=== PATIENT | male | born 1960 | race Caucasian/White ===

== ENCOUNTER 2021-06-29 03:11 | Outpatient (CLI) | payer OTHER, SELFPAY ==
[2021-06-29 09:27] LABS: ALT 32 U/L (16-63); AST 18 U/L (15-37); Albumin 4.1 g/dL (3.4-5.0); Alkaline Phosphatase 67 U/L (46-116); Anion Gap 5.1 mmol/L (3-11); BUN 21 mg/dL (7-18); Bilirubin, Total 0.6 mg/dL (0.2-1.0); CO2 32.9 mmol/L (21.0-32.0); CREATININE 1.2 mg/dL (0.70-1.30); Calcium 9.1 mg/dL (8.5-10.1); Calculated LDL 135 mg/dL (<100); Chloride 100 mmol/L (98-107); Cholesterol 194 mg/dL (<200); Glucose 106 mg/dL (74-106); HDL Cholesterol 37 mg/dL (40-60); Potassium 4.1 mmol/L (3.5-5.1); Sodium 138 mmol/L (136-145); Total Protein 7.6 g/dL (6.4-8.2); Triglyceride 110 mg/dL (<150)
== END 2021-06-29 03:12 | disposition home or self-care (01) ==
LOC: LBO 03:11
PROVIDERS: PCP Family Medicine; Visit Provider Family Medicine
DX: I10 Essential (primary) hypertension (principal)
CPT/HCPCS: 36415; 80053; 80061

== ENCOUNTER 2021-09-25 01:52 | Outpatient (CLI) | payer OTHER, SELFPAY ==
[2021-09-25 12:21] LABS: Source Nasal/Nares
[2021-09-25 15:39] LABS: COVID-19 PCR Negative (Negative)
== END 2021-09-25 01:53 | disposition home or self-care (01) ==
LOC: LBO 01:53
PROVIDERS: PCP Family Medicine; Visit Provider Surgery
DX: Z20.822 Contact with and (suspected) exposure to COVID-19 (principal)
CPT/HCPCS: 87635

== ENCOUNTER 2021-09-28 09:08 | Day surgery (SDC) | payer OTHER, SELFPAY ==
--- NOTE | 2021-09-27 19:14 | W.ANESPRE ---
General Info Date of Service Date Performed: 09/28/21 Height: 6 ft Weight: 110.733 kg Body Mass Index (BMI): 33.0 Surgical Procedure: Operation Date: 09/28/21 10:35 Proposed Procedure Side Surgeon p Colonoscopy Carla Grant MD Meds Allergies and Home Medications Allergies Allergy/AdvReac Type Severity Reaction Status Date / Time No Known Allergies Allergy Verified 09/24/21 11:12 Home Medication Medication Instructions Recorded aspirin 81 mg tablet,delayed 81 mg PO DAILY 09/26/20 release (Adult Low Dose Aspirin) cholecalciferol (vitamin D3) 25 25 mcg PO DAILY 09/26/20 mcg (1,000 unit) capsule multivitamin 1 tab PO DAILY 09/26/20 losartan 100 mg tablet 100 mg PO DAILY #90 tab 12/23/20 atorvastatin 40 mg tablet 40 mg PO QHS #90 tab 08/10/21 hydrochlorothiazide 50 mg tablet 50 mg PO DAILY #90 tab 08/10/21 Current Visit Medications: Current Medications Generic Name Dose Route Start Last Admin Trade Name Faheemq PRN Reason Stop Dose Admin Ringer's Solution 1,000 mls @ 80 mls/hr 09/28/21 06:00 IV 10/22/21 23:59 INFUSION CLARKE IV Miscellaneous Supplies 1 each 09/28/21 06:00 Iv Access IV 10/22/21 23:59 DIRECTED CLARKE Sodium Chloride 0 ml 09/28/21 06:00 Normal Saline Flush 10 Ml Syr IV 10/22/21 23:59 PRN PRN Sodium Chloride 0 ml 09/28/21 06:00 Normal Saline 10 Ml Vial IJ 10/22/21 23:59 DIRECTED PRN Sterile Water 0 ml 09/28/21 06:00 Water,Injection,Sterile 10 Ml Vial IJ 10/22/21 23:59 DIRECTED PRN PFSH Active Problems Active Problems: Problem Status Onset Code Asymmetrical sensorineural hearing loss H90.5 Screening for colon cancer Z12.11 Medical History Medical History Abnormal EKG pt. denies this Chronic fatigue Essential hypertension Hyperlipidemia Impairment of speech discrimination Skin lesion of right ear Tinnitus of right ear Surgical History Surgical History H/O right inguinal hernia repair (1969) Tobacco Smoking/Tobacco Use Status: Never Alcohol Alcohol Intake: never Substance Use Substance use: Never Substance use type: does not use Vital Signs and Lab Results Lab Results Blood Type / Crossmatch: No Data to Display Complete Blood Count: No Data to Display Complete Metabolic Panel: No Data to Display Liver Function Panel: No Data to Display Coagulation Panel: No Data to Display Cardiac Panel: No Data to Display Arterial Blood Gas: No Data to Display Venous Blood Gas: No Data to Display Pancreas Panel: No Data to Display Thyroid Panel: No Data to Display Infectious Disease: Coronavirus (COVID-19)(PCR) Negative (Negative) 09/25/21 08:52 09/25/21 Coronavirus 2019 Source Nasal/Nares 09/25/21 08:52 09/25/21 Blood Cultures: No Data to Display Toxicology Panel: No Data to Display Imaging and Studies Imaging and Studies Study information below may be from another EMR and interpreted by another provider. Please see original notes in EMR for more complete details. Stress Test Summary: 2016: 10 mets, no evidence of ischemia. Echocardiogram Summary: 2016: LVEF 55-60%, no sig valve issues. Anesthesia Assessment and Plan Anesthesia History Personal History: No History of Anesthesia Complications Family History: No Family History of Anesthesia Complications Exercise Tolerance Exercise Tolerance: Metabolic Equivalents>4 Cardiac & Pulmonary Exam Cardiac Exam: Normal S1/S2 Heart Sounds Pulmonary Exam: Clear Bilateral Breath Sounds Implantable Cardiac Device Does patient have a Pacemaker or an ICD?: No Airway Exam Known Difficult Airway: No Mallampati Class: 2 Mouth Opening: Normal (> 3cm) Thyromental Distance: Greater than 3 cm Neck Range of Motion: Full ROM Neck Circumference: Normal Teeth Condition: Normal Dentition ASA Classification ASA Score: ASA 2 Emergency Case?: No NPO Status NPO Status: NPO Clears >2 hours, Solids >8 hours Anesthesia Plan Resuscitation Status: Full Code Anesthesia Technique: General Anesthesia Airway Planned: Natural Airway Monitors Used: Standard Monitors Preoperative Comments:: 60 yo male for colo. Sig PMHx: HTN (HCTZ/losartan), never smoker.
--- NOTE | 2021-09-28 07:04 | W.COLOREPORT ---
Colonoscopy Report Date of procedure: 09/28/21 Pre-op diagnosis general: Colon Cancer screening Post-op diagnosis procedure note: other (rectal mass, polyps and diverticulosis) Procedure: Colonoscopy Surgeon: Carla Grant Anesthesia Type: General:No Airway Estimated blood loss (mL): 5 Pathology: other (Ascending polyp x2, transverse polyp, descending polyps x2, sigmoid polyps x2, rectal mass biopsies ) Complications: None Disposition: same day Indications: Mr. Acuña is a pleasant 60-year-old male with a history of hypertension and hypercholesterolemia who is here today to discuss his first screening colonoscopy.? He has had no GI symptoms.? He has no family history of colon cancer.? We discussed the procedure in layman's terms as well as the risks and benefits.? We reviewed the complications in detail including perforation. Risks, benefits and complications have been reviewed. Complications include but are not limited to bleeding, pain, perforation, missed small lesion/polyp, sore throat, aspiration and adverse reaction to the medications. Questions were entertained and answered to their satisfaction and they wished to proceed. No guarantees were given or implied. Proceed with colonoscopy under sedation Prep: Miralax/Dulcolax Procedure Start Time: 10:48 Procedure End Time: 11:22 Retraction Time: 28 minutes Findings: multiple small polyps Mild diverticulosis Rectal mass at 5 cm Procedure Description: After informed consent was obtained the patient was taken to the procedure room and placed in a left decubitous position. Monitors were applied and a time out was done. The patients name, date of , procedure, allergies to medications and metal in their body was reviewed. The patient was then sedated. Once sedated and comfortable a rectal exam was done. External exam was normal. Internal exam revealed a normal sphincter tone and no palpable masses. The prostate felt smooth. The scope was then introduced and retro-flexed. No internal hemorrhoids, polyps or masses were identified on retro-flexion. The scope was then advanced to the cecum without difficulty. The ileocecal vlave and appendiceal orifice were identified. The prep was good. The scope was then slowly retracted over 28 minutes back into the rectum. Polyps were removed with cold forceps in the ascending colon x2, transverse colon x1, descending colon x2, sigmoid colon x2. Biopsies of a rectal mass, located at 5 cm, was done with a hot snare. There was mild sigmoid diverticulosis noted. The scope was removed and the patient was woken up and taken back to Same day surgery in stable condition. The patient tolerated the procedure well and there were no immediate complications. Follow up: I will call with results and make a plan at that time
--- NOTE | 2021-09-28 07:05 | W.PM.DSUDISC ---
Discharge Plan Disposition Patient Disposition: HOME Condition: Good Discharge Details Reason For Visit: Colonoscopy Attending Provider: Carla Grant Primary Care Provider: Suraj Brennan Home Meds and New Rx's Prescriptions: Continued cholecalciferol (vitamin D3) 25 mcg (1,000 unit) capsule 25 mcg PO DAILY 0RF multivitamin Tablet 1 tab PO DAILY 0RF aspirin [Adult Low Dose Aspirin] 81 mg tablet,delayed release (DR/EC) 81 mg PO DAILY 0RF atorvastatin 40 mg tablet 40 mg PO QHS Qty: 90 3RF hydrochlorothiazide 50 mg tablet 50 mg PO DAILY Qty: 90 3RF losartan 100 mg tablet 100 mg PO DAILY Qty: 90 3RF Discharge Instructions Instructions: Colorectal Polyps (DC), Diverticulosis (DC) Additional Instructions: Findings: mild diverticulosis multiple small polyps rectal mass- Follow up: I will call with pathology results and discuss next steps Please call if you develop: fevers >101.5 Nausea or Vomiting Abdominal pain that is not transient Rectal bleeding that is more then a tbsp A hard abdomen and inability to pass gas DAY SURGERY UNIT POST ENDOSCOPY INSTRUCTIONS Instructions for everyone who is given Anesthesia: For your safety, please do the following for the next 24 Hours: a. Do not drive or operate dangerous equipment b. Do not drink alcohol beverages or use any recreational drugs for the first 24 hours or while taking pain medications. The medications in your body may have a reaction that can be dangerous. c. Do not make any important decisions or sign any important papers 1. Generally there are no restrictions on your activity after a day or so has gone by, but you may feel a bit fatigued for a few days. 2. After you arrive home you may have a light meal and return to a normal diet as you can tolerate it without feeling sick to your stomach. 3. After surgery, you may feel pain or discomfort. This should be only transient, but if it persists please contact your doctor. 4. If there are any questions regarding the findings of your procedure, please feel free to contact your doctor. 6. If you are unable to contact your doctor with a problem, contact the hospital at [phone]. 7. Continue all your regular medications unless directed otherwise. I understand the above instructions and have no questions. Signature of Patient or Responsible Adult Escort Date/Time Name of Responsible Adult Escort Signature of Nurse Date/Time Activity:: Activity as Tolerated Diet:: As Tolerated Discharge Orders Discharge Orders: Discharge Order (Routine); Ordered 09/28/21 Ordered By: Carla Grant
[2021-09-28 09:29] VITALS: BP 129/85; PULSE 82; RESP 20; TEMP 36.4; O2SAT 98
[2021-09-28] MEDS: Lactated Ringers 1,000 ML 80 ML IV (09:48)
[2021-09-28 10:34] VITALS: BMI 33.0
--- NOTE | 2021-09-28 10:55 | BOWEL_PTH ---
PATIENT: Smith Acuña LOC: [facility] U#:[id number] AGE/SX: 60/M ROOM: RE09/28/[address]: Carla Grant MD : 1960 BED: DIS: 09/28/2021 SPEC #: [id number] RECD: 09/28/21 12:58 STATUS: CATRACHITO REQ #: [id number] JEROME: 09/28/21 10:[address]: Carla Grant DEPT: Surgical Specimen RECD BY: Kira Vinson ENTERED: 09/28/21 12:59 SP TYPE: Bowel OTHR DR: Suraj Brennan DO Tissues: 1 - BIOPSY BOWEL 2 - BIOPSY BOWEL 3 - BIOPSY BOWEL 4 - BIOPSY BOWEL 5 - BIOPSY BOWEL Procedures: GROSS AND MICRO LEVEL 4 Comments: [id number]
[2021-09-28] MEDS: Endoscopic Tattoo 5 ML SYR IJ (11:20)
[2021-09-28 11:28] VITALS: BP 91/60; PULSE 65; RESP 16; TEMP 36.3; O2SAT 96
--- NOTE | 2021-09-28 11:38 | W.ANESPOSTOP ---
Postoperative Evaluation Date, Time and Location Date Performed: 09/28/21 Time Performed: 11:39 Patient Location: Day Surgery Unit Vital Signs Most Recent Imported Vital Signs: Most Recent Vital Signs Temp Pulse Resp BP Pulse Ox 36.3 C L 65 16 91/60 L 96 09/28/21 11:28 09/28/21 11:28 09/28/21 11:28 09/28/21 11:28 09/28/21 11:28 Pain Score Most Recent Pain Score: Most Recent Pain Score Pain Level 0 09/28/21 11:28 Assessment Mental Status: Awake (Alert & Oriented to Patient Baseline) Airway and Respiratory Function: Patent airway with normal (patient baseline) respiratory exam Cardiovascular Function: Hemodynamically Stable Hydration Status: Adequately Hydrated Nausea & Vomiting: No Nausea or Vomiting Pain: Pt. Denies Any Pain Peripheral Nerve Block: Patient did not receive a nerve block
[2021-09-28 11:50] VITALS: BP 112/66; PULSE 66; RESP 18; TEMP 36.4; O2SAT 96
== END 2021-09-28 12:40 | disposition home or self-care (01) ==
LOC: SUR 09:08
PROVIDERS: PCP Family Medicine; Visit Provider Surgery
PROC: 0DJD8ZZ Inspection of Lower Intestinal Tract, Via Natural or Artificial Opening Endoscopic (ICD-10-PCS; CPT 45378; principal; 2021-09-28 10:30)
DX: Z12.11 Encounter for screening for malignant neoplasm of colon (principal); K63.5 Polyp of colon; K57.30 Diverticulosis of large intestine without perforation or abscess without bleeding; K62.89 Other specified diseases of anus and rectum; I10 Essential (primary) hypertension; E78.00 Pure hypercholesterolemia, unspecified
CPT/HCPCS: 45385; 45380; 88305; J2001; J2704

== ENCOUNTER 2022-06-09 02:49 | Outpatient (CLI) | payer OTHER, SELFPAY ==
[2022-06-09 11:36] LABS: CREATININE 1.2 mg/dL (0.70-1.30); Estimated GFR 67.95 (mL/min/1.73m2)
== END 2022-06-09 02:50 | disposition home or self-care (01) ==
LOC: LBO 02:49
PROVIDERS: Registered Nurse Maternal Newborn; PCP Family Medicine; Visit Provider Family Medicine
DX: H90.3 Sensorineural hearing loss, bilateral (principal)
CPT/HCPCS: 36415; 82565

== ENCOUNTER → 2022-07-01 01:02 | Outpatient (CLI) | payer OTHER, SELFPAY ==
[2022-07-01] MEDS: Gadoterate meglumine 20 ML VIAL IVP (10:06)
--- NOTE | 2022-07-01 10:15 | DI.MRI_ITS ---
Exam(s) MR IAC BRAIN WO/W EXAM: MR IAC BRAIN WO/W CLINICAL HISTORY: asymmetrical hearing loss,h90.5. TECHNIQUE: Multiplanar multisequence MRI of the brain and internal auditory canals was performed. CONTRAST MATERIAL: IV Contrast: 20 mL of Magnevist contrast administered. COMPARISON: No exams were available for comparison FINDINGS: VENTRICLES AND EXTRA AXIAL SPACES: Normal in size and morphology for the patient's age. HEMORRHAGE: None. CEREBRAL PARENCHYMA: No focus of restricted diffusion to suggest acute infarct. No space-occupying le elvis identified. There are areas of hyperintense signal seen in the white matter on the T2 and FLAIR images consistent with small vessel ischemic disease. There is an old lacunar infarct in the left ba soto ganglia. MIDLINE SHIFT: None. BRAINSTEM/CEREBELLUM: Normal. CALVARIUM: Normal. ENHANCEMENT: No suspicious enhancement identified. VISUALIZED PARANASAL SINUSES/MASTOIDS: Clear. [place]: Normal flow void. PITUITARY GLAND: Unremarkable. IAC/CP ANGLE: The internal auditory canals are within normal limits. The cerebellar pontine angles ar e unremarkable. No enhancing lesions are seen. Visualized portion of the facial nerves appear within normal limits. OTHER FINDINGS: None. IMPRESSION: 1. No intracranial mass or enhancing lesion is seen. Specifically no lesion is seen in the internal auditory canals or cerebellopontine angles. 2. No acute intracranial process. 3. Hyperintense white matter foci likely reflecting small vessel ischemic disease. Old left basal ga ngliar lacunar infarct. DATA REPOSITORY:
== END ==
PROVIDERS: PCP Family Medicine; Visit Provider Registered Nurse Maternal Newborn
DX: H90.5 Unspecified sensorineural hearing loss (principal); I63.81 Other cerebral infarction due to occlusion or stenosis of small artery
CPT/HCPCS: 70553

== ENCOUNTER 2023-03-17 06:51 | Day surgery (SDC) | payer OTHER, SELFPAY ==
--- NOTE | 2023-03-16 20:41 | PDOC.DSDIS_ITS ---
Date of service: 03/17/23 Time of Service: 09:03 Discharge Plan Disposition Patient Disposition: Home Condition: Good Discharge Details Reason For Visit: Screening colonoscopy Attending Provider: Nando Pino Primary Care Provider: Suraj Brennan Home Meds and New Rx's Prescriptions: Continued losartan 100 mg tablet 100 mg PO DAILY Qty: 90 3RF cholecalciferol (vitamin D3) 25 mcg (1,000 unit) capsule 25 mcg PO DAILY multivitamin Tablet 1 tab PO DAILY aspirin [Adult Low Dose Aspirin] 81 mg tablet,delayed release (DR/EC) 81 mg PO DAILY diazepam 2 mg tablet 2 mg PO Q8H MDD 6 mg PRN (Reason: dizziness or vertigo) Qty: 15 2RF hydrochlorothiazide 50 mg tablet 50 mg PO DAILY Qty: 90 3RF Discontinued bisacodyl [Dulcolax (bisacodyl)] 5 mg tablet,delayed release (DR/EC) 5 mg PO ONCE Qty: 4 0RF Rx Instructions: Take per colonoscopy instructions provided by ordering providers office polyethylene glycol 3350 17 gram/dose powder 17 g PO DAILY Rx Instructions: per note dated 02/25/22 [facility] [place] [place] Discharge Instructions Instructions: Diverticulosis (GEN), Diverticulosis Diet (GEN), Colorectal Polyps (GEN) Additional Instructions: Smith, we were able to complete your colonoscopy today without any problems at all. The prep was excellent. The previous resection site of your rectal polyp looks great. There is some scar tissue which is expected, that should not be any problem. I do not see any signs of polyp recurrence in this area. You did have a polyp within the rectum in a different area. It was less than 0.25 cm, considered small by polyp standards. I removed this completely. I found 1 other polyp during the colonoscopy. It was approximately 65 cm up from your anus. I also removed this polyp completely. The second polyp was about 0.5 cm. Neither of the polyps have any worrisome features to the naked eye. I will take about a week or so to get the final results from the pathologist regarding the nature of these polyps. Once I have that information I will be in touch with recommendations for your next colonoscopy. Incidentally, you also have some diverticulosis. Diverticula are small weak spots in the colon wall. They can become infected or inflamed. When that happens, patients typically experience pain that usually on the left side or lower portion of their abdomen. When cases are severe, it is typically treated with antibiotics. Based on the size of your diverticula, and the distribution, I suspect they do not cause you any symptoms. I will attach some general information here regarding diverticulosis, as well as colorectal polyps in general. If you have any questions at all, please do not hesitate to call. 1. If tolerated, consume a soft, low fiber diet for 1-2 days. 2. Do not drive, drink alcohol, operate machinery, make critical decisions, or do activities that require coordination or balance for 24 hours. 3. Because air was put into your colon during the procedure, expelling air from your rectum (passing gas or farting) is normal. 4. You may not have a bowel movement for 1-3 days because of the colonoscopy prep. This is normal. 5. Go directly to the emergency room if you notice any of the following: Develop chills (warm to touch), or if you have a thermometer and your temperature is above 101 Difficulty breathing or difficultly swallowing Persistent vomiting Severe abdominal pain, other than gas cramps Severe chest pain Black, tarry stools Any bleeding ? exceeding one tablespoon 6. Call your physician if the site where your intravenous was started becomes red, swollen, painful, and warm to touch. 7. Your physician has reviewed your pre-procedure medications. Please continue to take those medications as previously ordered. You will be given specific information/education regarding any changes to your medications before leaving. Activity:: Activity as Tolerated Diet:: As Tolerated Discharge Orders Discharge Orders: Discharge Order (Routine); Ordered 03/16/23 Ordered By: Nando Pino DS: Diagnosis Discharge Diagnosis (1) Screening for colon cancer: Status: Acute Asessment and Plan: I will follow-up on polypectomy results
--- NOTE | 2023-03-16 20:43 | W.COLOREPORT ---
Date of service: 03/17/23 Time of Service: 09:06 Colonoscopy Report Date of procedure: 03/17/23 Pre-op diagnosis general: Screening colonoscopy Post-op diagnosis procedure note: other (Rectal polyp, colon polyp, diverticulosis) Procedure: Colonoscopy Surgeon: Nando Pino Anesthesia Type: General:No Airway Estimated blood loss (mL): 10 Pathology: other (Polyp, polyp at 65 cm) Complications: None Disposition: same day Indications: Javy is a 62 year old man with a history of tubulovillous adenoma who needs his next screening colonoscopy Prep: Miralax/Dulcolax Procedure Start Time: 08:30 Procedure End Time: 08:45 Retraction Time: 10 Findings: 0.25 cm rectal polyp, 0. 5 cm colon polyp, diverticulosis Procedure Description: After the induction of monitored anesthetic care, and with the patient in left lateral decubitus position, I began by performing an external anorectal exam.? Perineum and skin were normal, as was the anal verge.? There was no evidence of external hemorrhoids.? Next, I performed a digital rectal exam.? I did not appreciate any abnormal findings.? Next, I advanced a colonoscope into the rectal vault.? I performed retroflexion.? This appeared normal.? Just past 5 cm from the anal verge was a radial scar from the old resection site. The tissue was healthy appearing. I did not see any evidence of polyp recurrence here. Just beyond this was a small rectal polyp. It was approximately 0.25 cm and sessile in character. I removed this with cold forceps polypectomy, and there was no significant bleeding here. Using insufflation, I then advanced the colonoscope beyond the rectal folds and into the sigmoid colon before advancing towards the cecum.? The quality of the prep was excellent.? There was some occasional sigmoid diverticula. The scope was noted to be in the cecum by identification of the ileocecal valve and appendiceal orifice.? I then began withdrawing the colonoscope using repeated irrigation as necessary for full evaluation of the colonic mucosa. Around 65 cm from the anal verge I identified a 0.5 cm polyp. ?It appeared sessile in character. ?I was able to remove this with a cold forceps. ?I examined the site, and there was minimal bleeding. ?Once this was completed, I continued to withdraw the scope and examine the remainder of the colonic mucosa. Once the scope was withdrawn to the level of the rectum, great care was taken to examine portions of the rectal folds.? Finally, the scope was withdrawn and the patient was brought to the same-day surgery recovery unit as the anesthetic wore off. ?The findings and instructions were shared with the patient prior to discharge.
[2023-03-17 07:13] VITALS: BP 119/78; PULSE 71; RESP 16; TEMP 36.3; O2SAT 96
[2023-03-17] MEDS: Lactated Ringers 1,000 ML 80 ML IV (07:40)
--- NOTE | 2023-03-17 07:40 | W.ANESPRE ---
General Info Date of Service Date Performed: 03/17/23 Height: 6 ft Weight: 106.7 kg Body Mass Index (BMI): 31.8 Surgical Procedure: Operation Date: 03/17/23 08:20 Proposed Procedure Side Surgeon ely Pino MD Meds Allergies and Home Medications Allergies Allergy/AdvReac Type Severity Reaction Status Date / Time atorvastatin AdvReac Intermediate Other (See Verified 03/17/23 07:18 Comment) Home Medication Medication Instructions Recorded aspirin 81 mg tablet,delayed 81 mg PO DAILY 09/26/20 release (Adult Low Dose Aspirin) cholecalciferol (vitamin D3) 25 25 mcg PO DAILY 09/26/20 mcg (1,000 unit) capsule multivitamin 1 tab PO DAILY 09/26/20 diazepam 2 mg tablet 2 mg PO Q8H PRN dizziness or 07/06/22 vertigo #15 tabs hydrochlorothiazide 50 mg tablet 50 mg PO DAILY #90 tabs 10/12/22 losartan 100 mg tablet 100 mg PO DAILY #90 tabs 01/04/23 Current Visit Medications: Current Medications Generic Name Dose Route Start Last Admin Trade Name Faheemq PRN Reason Stop Dose Admin Hyoscyamine Sulfate 0.125 mg 03/16/23 20:44 Hyoscyamine 0.125 Mg Sl/Oral/Chew SL 04/15/23 20:43 DIRECTED PRN Ringer's Solution 1,000 mls @ 80 mls/hr 03/17/23 06:00 IV 04/15/23 23:59 [facility] IV Miscellaneous Supplies 1 each 03/17/23 06:00 Iv Access IV 04/15/23 23:59 DIRECTED CLARKE Ondansetron HCl 4 mg 03/16/23 20:44 Ondansetron 4 Mg/2 Ml Vial IVP 04/15/23 20:43 Q4H PRN PRN Nausea / Vomiting Sodium Chloride 0 ml 03/17/23 06:00 Normal Saline Flush 10 Ml Syr IV 04/15/23 23:59 PRN PRN Sodium Chloride 0 ml 03/17/23 06:00 Normal Saline 10 Ml Vial IJ 04/15/23 23:59 DIRECTED PRN Sterile Water 0 ml 03/17/23 06:00 Water,Injection,Sterile 10 Ml Vial IJ 04/15/23 23:59 DIRECTED PRN PFSH Active Problems Active Problems: Problem Status Onset Code HTN (hypertension) I10 Vertigo R42 Meniere disease H81.09 Tubulovillous adenoma of colon D12.6 Hyperplastic colon polyp K63.5 Asymmetrical sensorineural hearing loss H90.5 Screening for colon cancer Z12.11 Medical History Medical History Abnormal EKG pt. denies this Chronic fatigue Essential hypertension Hyperlipidemia Impairment of speech discrimination Rectal mass (~09/2021) referred to [facility] [place] colorectal surg. Skin lesion of right ear Tinnitus of right ear Medical History Comments:: dentures: top= half, botton = full Surgical History Surgical History H/O excision of mass (01/12/22) excision rectal tumor, transanal approach, full thickness of tubulovillous adenoma H/O right inguinal hernia repair (1968) History of colonoscopy (~09/2021) Rectal tumor s/p robotic transanal minimally invasive surgery @ [facility] [place] 12/2021 Tobacco Smoking/Tobacco Use Status: Never Passive smoking exposure: No Second hand exposure: No Alcohol Alcohol Intake: never Substance Use Substance use: Never Substance use type: does not use Vital Signs and Lab Results Vital Signs Most Recent Vital Signs in EMR: Most Recent Vital Signs Temp Pulse Resp BP Pulse Ox 36.3 C L 71 16 119/78 96 03/17/23 07:13 03/17/23 07:13 03/17/23 07:13 03/17/23 07:13 03/17/23 07:13 Lab Results Blood Type / Crossmatch: No Data to Display Complete Blood Count: No Data to Display Complete Metabolic Panel: No Data to Display Liver Function Panel: No Data to Display Coagulation Panel: No Data to Display Cardiac Panel: No Data to Display Arterial Blood Gas: No Data to Display Venous Blood Gas: No Data to Display Pancreas Panel: No Data to Display Thyroid Panel: No Data to Display Infectious Disease: No Data to Display Blood Cultures: No Data to Display Toxicology Panel: No Data to Display Imaging and Studies Imaging and Studies Study information below may be from another EMR and interpreted by another provider. Please see original notes in EMR for more complete details. Stress Test Summary: 2016: 10 mets, no evidence of ischemia. Echocardiogram Summary: 2016: LVEF 55-60%, no sig valve issues. Anesthesia Assessment and Plan Anesthesia History Personal History: No History of Anesthesia Complications Family History: No Family History of Anesthesia Complications Exercise Tolerance Exercise Tolerance: Metabolic Equivalents>4 Cardiac & Pulmonary Exam Cardiac Exam: Normal S1/S2 Heart Sounds Pulmonary Exam: Clear Bilateral Breath Sounds Implantable Cardiac Device Does patient have a Pacemaker or an ICD?: No Airway Exam Known Difficult Airway: No Mallampati Class: 2 Mouth Opening: Normal (> 3cm) Thyromental Distance: Greater than 3 cm Neck Range of Motion: Full ROM Neck Circumference: Normal Teeth Condition: Normal Dentition ASA Classification ASA Score: ASA 2 Emergency Case?: No NPO Status NPO Status: NPO Clears >2 hours, Solids >8 hours Anesthesia Plan Resuscitation Status: Full Code Anesthesia Technique: General Anesthesia Airway Planned: Natural Airway Monitors Used: Standard Monitors Preoperative Comments:: 62 yo male for colo. Sig PMHx: HTN (HCTZ/losartan), s/p rectal mass excision, never smoker. Previous Anes: - colo, prop, natural airway, no issues. - [facility] [place], rectal mass, easy mask, lipscomb 2 grade 2 with pressure
[2023-03-17 08:05] VITALS: BMI 31.8
--- NOTE | 2023-03-17 08:32 | BOWEL_PTH ---
PATIENT: Smith Acuña LOC: [facility] U#:[id number] AGE/SX: 62/M ROOM: RE03/17/[address]: Nando Pino MD : 1960 BED: DIS: 03/17/2023 SPEC #: [id number] RECD: 03/17/23 12:33 STATUS: CATRACHITO REQ #: [id number] JEROME: 03/17/23 08:[address]: Nando Pino DEPT: Surgical Specimen RECD BY: Kira Vinson ENTERED: 03/17/23 12:34 SP TYPE: Bowel OTHR DR: Suraj Brennan DO Tissues: 1 - BIOPSY BOWEL 2 - BIOPSY BOWEL Procedures: GROSS AND MICRO LEVEL 4 Comments: [id number]
[2023-03-17 08:59] VITALS: BP 113/72; PULSE 64; RESP 16; TEMP 36.7; O2SAT 96
[2023-03-17 09:27] VITALS: BP 128/91; PULSE 66; RESP 16; TEMP 36.6; O2SAT 97
--- NOTE | 2023-03-17 10:00 | W.ANESPOSTOP ---
Postoperative Evaluation Date, Time and Location Date Performed: 03/17/23 Time Performed: 10:00 Patient Location: Day Surgery Unit Vital Signs Most Recent Imported Vital Signs: Most Recent Vital Signs Temp Pulse Resp BP Pulse Ox 36.6 C 66 16 128/91 H 97 03/17/23 09:27 03/17/23 09:27 03/17/23 09:27 03/17/23 09:27 03/17/23 09:27 Pain Score Most Recent Pain Score: Most Recent Pain Score Pain Level 0 03/17/23 09:27 Assessment Mental Status: Awake (Alert & Oriented to Patient Baseline) Airway and Respiratory Function: Patent airway with normal (patient baseline) respiratory exam Cardiovascular Function: Hemodynamically Stable Hydration Status: Adequately Hydrated Nausea & Vomiting: No Nausea or Vomiting Pain: Pt. Denies Any Pain Peripheral Nerve Block: Patient did not receive a nerve block
== END 2023-03-17 10:10 | disposition home or self-care (01) ==
PROVIDERS: PCP Family Medicine; Visit Provider Surgery
PROC: 0DJD8ZZ Inspection of Lower Intestinal Tract, Via Natural or Artificial Opening Endoscopic (ICD-10-PCS; CPT 45378; principal; 2023-03-17 08:15)
DX: Z12.11 Encounter for screening for malignant neoplasm of colon (principal); Z86.010 Personal history of colon polyps; K57.30 Diverticulosis of large intestine without perforation or abscess without bleeding; K62.1 Rectal polyp; K63.5 Polyp of colon
CPT/HCPCS: 45380; 88305